=== PATIENT | female | born 1970 | race Caucasian/White ===

== ENCOUNTER 2018-09-09 10:00 | Emergency (ER) | payer OTHER ==
--- OUTSIDE RECORDS SUMMARY | 2018-09-09 10:25 | XMS REPORT ---
:1970 Author Name sound, ultra Care Team Providers Name Role Phone sound, ultra Unavailable Unavailable PROBLEMS Type Condition ICD9-CM Code [id number] Code Onset Condition SNOMED Code Dates Status Problem Unspecified R32 Active 387403272 urinary incontinence Problem Subacute and N76.1 Active 581266073 chronic vaginitis Problem Candidiasis of B37.3 Active 93862530 vulva and vagina Problem Family history of Z80.3 Active 807603064 malignant neoplasm of breast Problem Family history of Z80.41 Active 873330511 malignant neoplasm of ovary Problem Encounter for Z30.431 Active 005468109 routine checking of intrauterine contraceptive device Problem Other abnormal and R92.8 Active 115315923 inconclusive findings on diagnostic imaging of breast Problem Leiomyoma of D25.9 Active 12377786 uterus, unspecified ALLERGIES No Information ENCOUNTERS Encounter Location Date Diagnosis [facility] May, [place] [id number] [facility] May, [place] [id number] [facility] Nov, [place] [id number] [facility] 103 Nov, [place] [id number] [facility] 103 Sep, [place] [id number] [facility] 103 Sep, OBGYN [facility], [place] [id number] [facility] 103 Jul, Leiomyoma of uterus, OBGYN [facility], unspecified D25.9 [place] [id number] [facility] 103 Jul, [facility], checking of intrauterine [place] [id number] contraceptive device Z30.431 ; Family history of malignant neoplasm of ovary Z80.41 ; Leiomyoma of uterus, unspecified D25.9 and Abnormal findings on diagnostic imaging of other specified body structures R93.8 [facility] 103 Jun, OBG[place], [place] [id number] [facility] 103 Jun, Candidiasis of vulva and OBGYN [facility], vagina B37.3 and Encounter [place] [id number] for screening for infections with a predominantly sexual mode of transmission Z11.3 [facility] 103 Jun, Other abnormal and [facility], inconclusive findings on [place] [id number] diagnostic imaging of breast R92.8 [facility] 103 Jun, Inconclusive mammogram [facility], R92.2 [place] [id number] [facility] 103 May, Encounter for [facility], gynecological examination [place] [id number] (general) (routine) without abnormal findings Z01.419 ; Encounter for screening for malignant neoplasm of cervix Z12.4 ; Encounter for screening mammogram for malignant neoplasm of breast Z12.31 ; Encounter for routine checking of intrauterine contraceptive device Z30.431 ; Family history of malignant neoplasm of breast Z80.3 ; Family history of malignant neoplasm of ovary Z80.41 ; Other abnormal and inconclusive findings on diagnostic imaging of breast R92.8 ; Leiomyoma of uterus, unspecified D25.9 and Unspecified urinary incontinence R32 [facility] 103 May, [facility], [place] [id number] ovary Z80.41 ; Encounter for routine checking of intrauterine contraceptive device Z30.431 and Abnormal findings on diagnostic imaging of other specified body structures R93.8 [facility] 103 Mar, Candidiasis of vulva and OBGYN [facility] vagina B37.3 [place] [id number] [facility] 103 Mar, Candidiasis of vulva and OBGYN [facility] vagina B37.3 [place] [id number] [facility] 103 Feb, [place] [id number] [facility] 103 Jan, [place] [id number] [facility] 103 Nov, Family history of OBGYN [facility], malignant neoplasm [place] [id number] breast Z80.3 and Other abnormal and inconclusive findings on diagnostic imaging of breast R92.8 [facility] 103 Nov, [place] [id number] [facility] 103 Nov, [place] [id number] [facility] 103 Nov, Family history of OBGYN [facility], malignant neoplasm of [place] [id number] breast Z80.3 and Family history of malignant neoplasm of ovary Z80.41 [facility] 103 Oct, [place] [id number] [facility] 103 Sep, Abnormal findings on OBGYN [facility], diagnostic imaging of [place] [id number] other specified body structures R93.8 ; Family history of malignant neoplasm of breast Z80.3 ; Family history of malignant neoplasm of ovary Z80.41 and Encounter for routine checking of intrauterine contraceptive device Z30.431 [facility] 103 Sep, Encounter for routine OBGYN [facility], checking of intrauterine [place] [id number] contraceptive device Z30.431 and Abnormal findings on diagnostic imaging of other specified body structures R93.8 [facility] Jun, Encounter for routine OBGYN [facility], checking of intrauterine [place] [id number] contraceptive device Z30.431 and Other specified noninflammatory disorders of uterus N85.8 [facility] Jun, Encounter for routine OBGYN [facility], checking of intrauterine [place] [id number] contraceptive device Z30.431 and Unspecified ovarian cyst, right side N83.201 [facility] May, Encounter for OBGYN [facility], gynecological examination [place] [id number] (general) (routine) without abnormal findings Z01.419 ; Encounter for screening mammogram for malignant neoplasm of breast Z12.31 ; Family history of malignant neoplasm of breast Z80.3 ; Unspecified urinary incontinence R32 and Encounter for routine checking of intrauterine contraceptive device Z30.431 [facility] Feb, Encounter for routine OBGYN [facility], checking of intrauterine [place] [id number] contraceptive device Z30.431 [facility] Feb, Encounter for routine OBGYN [facility], checking of intrauterine [place] [id number] contraceptive device Z30.431 [facility] Feb, Encounter for routine OBGYN [facility], checking of intrauterine [place] [id number] contraceptive device Z30.431 and Subacute and chronic vaginitis N76.1 [facility] December, Subacute and chronic OBGYN [facility], vaginitis N76.1 ; [place] [id number] Encounter for routine checking of intrauterine contraceptive device Z30.431 and Encounter for screening for infections with a predominantly sexual mode of transmission Z11.3 [facility] Sep, Acute vaginitis N76.0 [place] [id number] [facility] 103 Sep, Subacute and chronic OBGYN [facility], vaginitis N76.1 and Acute [place] [id number] vulvitis N76.2 [facility] May, OBGYN [facility], [place] [id number] [facility] May, Encounter for OBGYN [facility], gynecological examination [place] [id number] (general) (routine) without abnormal findings Z01.419 ; Encounter for routine checking of intrauterine contraceptive device Z30.431 and Encounter for screening mammogram for malignant neoplasm of breast Z12.31 [facility] 103 December, [place]BG[place] [id number] [facility] 103 December, Subacute and chronic OBGYN [facility], vaginitis N76.1 [place] [id number] [facility] 103 December, [place], [place] [id number] [facility] 103 December, Candidiasis of vulva and OBGYN [facility], vagina B37.3 and Acute [place] [id number] vaginitis N76.0 [facility] 103 Oct, Subacute and chronic OBGYN [facility], vaginitis N76.1 [place] [id number] [facility] May, [place] [id number] [facility] 103 May, Encounter for OBGYN [facility], gynecological examination [place] [id number] (general) (routine) without abnormal findings Z01.419 ; Encounter for routine checking of intrauterine contraceptive device Z30.431 ; Encounter for screening mammogram for malignant neoplasm of breast Z12.31 and Subacute and chronic vaginitis N76.1 [facility] May, [place] [id number] [facility] Apr, [place] [id number] [facility] 103 Apr, PELVIC PAIN 625.9 and OBGYN [facility], VAGINAL DISCHARGE 623.5 [place] [id number] [facility] Sep, [place], [place] [id number] [facility] Jun, [place], [place] [id number] [facility] Jun, VAGINAL DISCHARGE 623.5 OBGYN [facility], and Acute vaginitis 616.10 [place] [id number] [facility] Jun, Vaginitis [address] [place], [place] [id number] [facility] May, Vaginitis 616.10 [place] [id number] [facility] May, Vaginitis 616.10 [place] [id number] [facility] 103 May, Vaginitis 616.10 [place] [id number] [facility] May, Vaginitis 616.10 [place], [place] [id number] [facility] Apr, ROUTINE AUDIOLOGIST EXAMINATION OBGYN [facility], V72.31 ; PAP SMEAR W/O AUDIOLOGIST [place] [id number] EXAM V76.2 ; SCREEN MAMMOGRAM NEC V76.12 and IUD SURVEILLANCE V25.42 [facility] Mar, [place] [id number] [facility] 14 Aug, 2013 VAGINAL DISCHARGE 623.5 OBGYN [facility], and STD Screen V74.5 [place] [id number] [facility] 17 Jul, 2013 IUD SURVEILLANCE V25.42 OBGYN [facility], and Ovarian cyst NOS 620.2 [place] [id number] [facility] 103 Jul, Ovarian cyst NOS 620.2 and OBGYN [facility], IUD SURVEILLANCE V25.42 [place] [id number] [facility] 103 May, IUD SURVEILLANCE V25.42 OBGYN [facility], and Ovarian cyst NOS 620.2 [place] [id number] [facility] 103 May, Ovarian cyst NOS 620.2 and OBGYN [facility], IUD SURVEILLANCE V25.42 [place] [id number] [facility] 16 Apr, 2013 IUD SURVEILLANCE V25.42 OBGYN [facility], and Ovarian cyst NOS 620.2 [place] [id number] [facility] 16 Apr, 2013 IUD SURVEILLANCE V25.42 OBGYN [facility], and Ovarian cyst NOS 620.2 [place] [id number] [facility] 103 16 Apr, 2013 ROUTINE AUDIOLOGIST EXAMINATION OBGYN [facility], V72.31 ; PAP SMEAR W/O AUDIOLOGIST [place] [id number] EXAM V76.2 ; SCREEN MAMMOGRAM NEC V76.12 and IUD SURVEILLANCE V25.42 [facility] 103 10 Apr, 2012 ROUTINE AUDIOLOGIST EXAMINATION OBGYN [facility], V72.31 ; PAP SMEAR W/O AUDIOLOGIST [place] [id number] EXAM V76.2 and IUD SURVEILLANCE V25.42 [facility] 103 Jan, OBGYN [facility], [place] [id number] [facility] 103 Jan, [place] [id number] [facility] 103 Jan, IUD FOLLOW-UP V25.42 [place], [place] [id number] [facility] 103 December, INSERTION OF IUD V25.11 [place] [id number] [facility] 103 December, [place] [id number] [facility] Oct, [place] [id number] [facility] Oct, FAMILY PLANNING V25.09 and OBGYN [facility], Dysmenorrhea 625.3 [place] [id number] [facility] 103 Aug, FAMILY PLANNING V25.09 and OBGYN [facility], Dysmenorrhea 625.3 [place] [id number] [facility] 103 Jun, Intrauterine device OBGYN [facility], imbedded 996.32 ; FAMILY [place] [id number] PLANNING V25.09 and Dysmenorrhea 625.3 [facility] Jun, [place] [id number] [facility] 103 May, Ovarian cyst NOS 620.2 ; OBGYN [facility], Intrauterine device [place] [id number] imbedded 996.32 and Candidiasis of vagina 112.1 [facility] 103 May, Ovarian cyst NOS 620.2 [place] [id number] [facility] [address] [place] [place] [id number] [facility] 103 Apr, IUD SURVEILLANCE V25.42 ; OBGYN [facility], MALFUNCTION IUD 996.32 and [place] [id number] Ovarian cyst NOS 620.2 [facility] Apr, [place], [place] [id number] [facility] Apr, IUD SURVEILLANCE V25.42 ; OBGYN [facility], MALFUNCTION IUD 996.32 and [place] [id number] Ovarian cyst NOS 620.2 [facility] Apr, MALFUNCTION IUD 996.32 and OBGYN [facility], Ovarian cyst NOS 620.2 [place] [id number] [facility] Apr, ROUTINE AUDIOLOGIST EXAMINATION OBGYN [facility], V72.31 ; PAP SMEAR W/O AUDIOLOGIST [place] [id number] EXAM V76.2 and IUD SURVEILLANCE V25.42 [facility] Oct, Candidal vulvovaginitis OBGYN [facility], 112.[address] [place] [id number] [address] Oct, VAGINAL DISCHARGE [address]23.[address] [facility] [address] [place], [place] [id number] [facility] May, IUD SURVEILLANCE V25.42 [place], [place] [id number] [facility] 103 Apr, IUD INSERTION V25.1 and OBGYN [facility], IUD REMOVAL AND/OR [place] [id number] REININSERTION V25.42 [facility] Apr, OBG[place] [id number] [facility] 103 Apr, ABN FINDINGS- ORGANS OBN [facility], 793.5 [place] [id number] [facility] Apr, ABN CLINICAL FINDING NEC [facility], 796.4 [place] [id number] [facility] 103 Mar, ROUTINE AUDIOLOGIST EXAMINATION OBGYN [facility], V72.31 ; Acne NOS 706.1 ; [place] [id number] IUD SURVEILLANCE V25.42 ; FAMILY PLANNING V25.09 and ABN FINDINGS- ORGANS 793.5 [facility] Jul, [place]BG[place], [place] [id number] [facility] Jul, VAGINAL DISCHARGE 623.5 [place], [place] [id number] [facility] Jun, Vaginitis 616.10 [place], [place] [id number] [facility] Mar, ROUTINE AUDIOLOGIST EXAMINATION OBN [facility], V72.31 and Hyperlipidemia [place] [id number] 272.4 [facility] December, Vaginitis 616.10 ; Yeast OBGYN [facility], infection 112.9 and [place] [id number] Hemorrhoids NOS 455.6 [facility] Nov, PELVIC PAIN 625.9 and ABN OBGYN [facility], FINDINGS- ORGANS 793.5 [place] [id number] [facility] 103 Nov, PELVIC PAIN 625.9 [place] [id number] [facility] Nov, Yeast infection 112.9 and OBGYN [facility], PELVIC PAIN 625.9 [place] [id number] [facility] Mar, [place]BG[place], [place] [id number] [facility] 103 Mar, ROUTINE AUDIOLOGIST EXAMINATION OBN [facility], V72.31 and [place] [id number] vulvovaginitis 112.1 IMMUNIZATIONS No Known Immunizations SOCIAL HISTORY Never Assessed REASON FOR REFERRAL FUNCTIONAL STATUS PLAN OF CARE VITAL SIGNS MEDICATIONS Unknown Medications PROCEDURES Procedure Date Ordered Result Body Site TRANSVAGINAL US, NON-OB Aug 04, 2018 3D rendering requiring imaging post processing Aug 04, 2018 RESULTS Name Result Date Reference Range Ultrasound : Pelvis REASON FOR VISIT 8 wk US Insurance Providers [facility] Patient Patient Patient Patient Patient Subscriber Subscriber Subscriber Group Insurance Plan Plan Plan Plan ID Relationship Address Phone Name Date of ID Name Date of No Type Insurance Insurance Insurance Coverage to Subscriber Address Phone Name Dates [employer] [phone] [employer] [place] [id number] Blue [id number] [address] Cross[place] Cross/Blue Shield [id number] Shield [employer] [phone] [employer] [place] [id number] Blue [id number] [address] 128 [place] [address] Shield [employer] [phone] [employer] self [place] [id number] [phone] [place] [phone] [employer] 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
[2018-09-09 10:31] VITALS: BP 121/69
--- NOTE | 2018-09-09 10:54 | UC ---
Throat Pain/Nasal Nasir HPI - HPI Summary HPI Summary: Per mail order biller 'Mild sinus congestion x1 week. Does feel ears popping occasionally. Denies cough. Now has sore throat, occasional chills and headache x2 days. Right ear discomfort." -has had h/o sinus infections -2 sinus surgereies. hasnt had sinus bacterial infection in a long time. -thinks it may developing into bacterial -she thought it was strep bc white spots -using daily saline lavage and flonase spray +pain bending fwd in cheeks. -rt forehead and cheek pain, increasing throughout the week. no relief w/ above messages. - History of Current Complaint Chief Complaint: UCGeneralIllness Stated Complaint: SORE THROAT, CONGESTION Time Seen by Provider: 09/09/18 10:25 Hx Last Menstrual Period: mirena Pain Intensity: 4 - Allergies/Home Medications Allergies/Adverse Reactions: Allergies Allergy/AdvReac Type Severity Reaction Status Date / Time No Known Allergies Allergy Verified 09/09/18 10:25 Home Medications: Home Medications LevoCETirizine TAB (NF) [Xyzal TAB (NF)] 1 tab PO DAILY 09/09/18 [History Confirmed 09/09/18] guaiFENesin [Mucinex] 600 mg PO ONCE 09/09/18 [History Confirmed 09/09/18] PMH/Surg Hx/FS Hx/Imm Hx Previously Healthy: Yes - Surgical History Surgical History: Yes Surgery Procedure, Year, and Place: , kidney stones removed, tonsilectomy - Family History Known Family History: Positive: None, Diabetes - Social History Alcohol Use: Occasionally Substance Use Type: None Smoking Status (MU): Never Smoked Tobacco Have You Smoked in the Last Year: No Review of Systems All Other Systems Reviewed And Are Negative: Yes Constitutional: Positive: Fatigue Skin: Positive: Negative Eyes: Positive: Negative ENT: Positive: Sore Throat, Ear Ache, Sinus Pain/Tenderness Respiratory: Positive: Negative Cardiovascular: Positive: Negative Gastrointestinal: Positive: Negative Genitourinary: Positive: Negative Motor: Positive: Negative Neurovascular: Positive: Negative Musculoskeletal: Positive: Negative Neurological: Positive: Negative Psychological: Positive: Negative Is Patient Immunocompromised?: No Physical Exam Triage Information Reviewed: Yes Appearance: Ill-Appearing - mild, very pleasant. reliable historian. Vital Signs: Initial Vital Signs Temp 97.7 F 09/09/18 10:26 Pulse 71 09/09/18 10:26 Resp 14 09/09/18 10:26 BP 121/69 09/09/18 10:26 Pulse Ox 100 09/09/18 10:26 Eye Exam: Normal ENT: Positive: Pharyngeal erythema, Nasal congestion, Sinus tenderness - rt frontal and maxillary. Negative: Hoarse voice Dental Exam: Normal Neck exam: Normal Neck: Positive: Supple, Nontender, No Lymphadenopathy Respiratory Exam: Normal Respiratory: Positive: Lungs clear, Normal breath sounds, No respiratory distress, No accessory muscle use. Negative: Crackles, Rhonchi, Stridor, Wheezing Cardiovascular Exam: Normal Cardiovascular: Positive: RRR Abdominal Exam: Normal Musculoskeletal Exam: Normal Neurological Exam: Normal Psychological Exam: Normal Skin Exam: Normal Throat Pain/Nasal Course/Dx - Course Assessment/Plan: - likely sinusitis > 1 wk of pain in pt w/ 2 sinus surgeries. will gove amox. can wait 1-2 days to see if sx increase/persist or improve. request difklucan w/ abx. -probiotics - Differential Dx/Diagnosis Differential Diagnosis/HQI/PQRI: Laryngitis, Otitis Media, Pharyngitis, Sinusitis, Tonsillitis, URI Provider Diagnosis: Sinusitis Discharge - Sign-Out/Discharge Documenting (check all that apply): Patient Departure All imaging exams completed and their final reports reviewed: No Studies - Discharge Plan Condition: Stable Disposition: HOME Prescriptions: Amoxicillin PO (*) [Amoxicillin 875 MG (*)] 875 mg PO BID #20 tab Fluconazole [Diflucan] 150 mg PO ONCE #1 tab Patient Education Materials: Sinusitis (ED) Referrals: Scott Mike MD [Primary Care Provider] - 2 Weeks Additional Instructions: -Make sure to take a probiotic daily while on antibiotics to help prevent a potential complication of antibiotic use called c diff. Some well known brands that can be found OTC are [employer], [employer] and [employer]. Make sure to complete the entire prescription unless advised otherwise by your health care provider. -Continue with the saline lavages and flonase nasal spray. - Billing Disposition and Condition Condition: STABLE Disposition: Home
== END 2018-09-09 11:10 | disposition home or self-care (01) ==
LOC: UCCORT 10:00
DX: J32.9 Chronic sinusitis, unspecified (principal); J02.9 Acute pharyngitis, unspecified; Z98.890 Other specified postprocedural states
CPT/HCPCS: 87651; 99212; G0463

== ENCOUNTER 2019-02-07 16:15 | Emergency (ER) | payer BC, OTHER ==
[2019-02-07 16:51] VITALS: BP 115/67
--- NOTE | 2019-02-07 16:57 | UC ---
Throat Pain/Nasal Nasir HPI - HPI Summary HPI Summary: Pt presents with c/o nasal congestion, cough, sinus pressure and pain X 1 week. Pt has been taking OTC nasal decongestant with no improvement of symptoms. - History of Current Complaint Chief Complaint: UCRespiratory Stated Complaint: SINUS CONCERN Time Seen by Provider: 02/07/19 16:43 Hx Obtained From: Patient Hx Last Menstrual Period: mirena ?: No Onset/Duration: Gradual Onset, Lasting Days - 7, Still Present Severity: Moderate Pain Intensity: 0 Cough: Nonproductive Associated Signs & Symptoms: Positive: Sinus Discomfort Related History: Seasonal Allergies - Epiglottits Risk Factors Epiglottis Risk Factors: Negative - Allergies/Home Medications Allergies/Adverse Reactions: Allergies Allergy/AdvReac Type Severity Reaction Status Date / Time No Known Allergies Allergy Verified 02/07/19 16:51 Home Medications: Home Medications Pseudoephedrine HCL ER TAB* [Sudafed 12 Hour*] 120 mg PO BID 02/07/19 [History Confirmed 02/07/19] PMH/Surg Hx/FS Hx/Imm Hx Previously Healthy: Yes - Surgical History Surgical History: Yes Surgery Procedure, Year, and Place: , kidney stones removed, tonsilectomy - Family History Known Family History: Positive: Diabetes - Social History Occupation: Employed Full-time Lives: With Family Alcohol Use: Occasionally Substance Use Type: None Smoking Status (MU): Never Smoked Tobacco Have You Smoked in the Last Year: No Review of Systems All Other Systems Reviewed And Are Negative: Yes Constitutional: Positive: Fatigue Skin: Positive: Negative Eyes: Positive: Negative ENT: Positive: Sinus Congestion, Sinus Pain/Tenderness Respiratory: Positive: Cough Cardiovascular: Positive: Negative Gastrointestinal: Positive: Negative Genitourinary: Positive: Negative Motor: Positive: Negative Neurovascular: Positive: Negative Musculoskeletal: Positive: Myalgia Neurological: Positive: Headache Is Patient Immunocompromised?: No Physical Exam Triage Information Reviewed: Yes Appearance: Ill-Appearing Vital Signs: Initial Vital Signs Temp 99.2 F 02/07/19 16:48 Pulse 82 02/07/19 16:48 Resp 16 02/07/19 16:48 BP 115/67 02/07/19 16:48 Pulse Ox 100 02/07/19 16:48 Vital Signs Reviewed: Yes Eye Exam: Normal ENT Exam: Other ENT: Positive: Nasal congestion, Sinus tenderness Dental Exam: Normal Neck exam: Normal Respiratory Exam: Normal Cardiovascular Exam: Normal Musculoskeletal Exam: Normal Neurological Exam: Normal Psychological Exam: Normal Skin Exam: Normal Throat Pain/Nasal Course/Dx - Differential Dx/Diagnosis Differential Diagnosis/HQI/PQRI: Influenza, Sinusitis, URI Provider Diagnosis: Sinusitis Discharge - Sign-Out/Discharge Documenting (check all that apply): Patient Departure All imaging exams completed and their final reports reviewed: No Studies - Discharge Plan Condition: Stable Disposition: HOME Prescriptions: Amoxicillin PO (*) [Amoxicillin 875 MG (*)] 875 mg PO Q12H #20 tab Fluconazole 150 MG TAB* [Diflucan 150 MG TAB*] 150 mg PO UC ONCE #2 tablet Patient Education Materials: Sinusitis (ED) Referrals: Scott Mike MD [Primary Care Provider] - If Needed - Billing Disposition and Condition Condition: STABLE Disposition: Home
== END 2019-02-07 17:04 | disposition home or self-care (01) ==
LOC: UCCORT 16:15
DX: J32.9 Chronic sinusitis, unspecified (principal)
CPT/HCPCS: 99212; G0463